=== PATIENT | female | born 1970 | race Caucasian/White ===

== ENCOUNTER 2018-05-06 20:22 | Emergency (ER) | payer MEDICAID ==
[~2018-05-06] VITALS: Ht 165.1 cm; Wt 99.8 kg
[~2018-05-06 20:22] MED LIST: PAROXETINE PO
[2018-05-06 20:29] VITALS: BP 112/72
[2018-05-06 21:30] LABS: Basophils # (auto) 0.1 uL; Basophils % (auto) 0.6 % (0.0-2.0); Eosinophils # (auto) 0.5 uL; Eosinophils % (auto) 4.7 % (0.0-7.0); Hemoglobin 13.2 g/dL (12.2-16.2); Lymphocytes # (auto) 2.3 uL; Lymphocytes % (auto) 23.6 % (10.0-50.0); Mean Corpuscular Hemoglobin 29.3 pg (28.0-32.0); Mean Corpuscular Hgb Conc. 33.1 g/dL (32.0-36.0); Mean Corpuscular Volume 88.4 fL (80.0-100.0); Monocytes # (auto) 0.7 uL; Monocytes % (auto) 7.1 % (0.0-12.0); Neutrophils # (auto) 6.2 uL; Nucleated Red Blood Cells % 0.1 %; Platelet Count (auto) 336 10^3/uL (140-450); Red Blood Cells 4.52 10^6/uL (4.0-5.20); Red Cell Distribution Width 14.2 % (11.8-14.3); White Blood Cell 9.7 10^3/uL (4.4-10.8)
[2018-05-06 21:47] LABS: Alanine Aminotransferase 31 U/L (13-56); Albumin 3.8 g/dL (3.4-5.0); Anion Gap 11 (5-15); Aspartate Aminotransferase 23 U/L (15-37); BUN/Creatinine Ratio 16.9; Blood Urea Nitrogen 15 mg/dL (7-18); Calcium 8.6 mg/dL (8.5-10.1); Carbon Dioxide 24 mmol/L (21-32); Chloride 104 mmol/L (98-107); GFR African American 88 mL/min; GFR Non-African American 73 mL/min; Glucose 108 mg/dL (74-106); Magnesium 1.9 mg/dL (1.6-2.6); Potassium 3.7 mmol/L (3.5-5.1); Sodium 139 mmol/L (136-145)
[2018-05-06 21:53] LABS: Alkaline Phosphatase 54 U/L (45-117); Bilirubin, Total 0.5 mg/dL (0.2-1.0); Total Protein 8.1 g/dL (6.4-8.2)
== END 2018-05-07 07:10 | disposition left against medical advice (07) ==
LOC: ER 20:22
DX: R07.9 Chest pain, unspecified (principal); Z53.21 Procedure and treatment not carried out due to patient leaving prior to being seen by health care provider
CPT/HCPCS: 36415; 71046; 80053; 83735; 84484; 85025; 93005

== ENCOUNTER 2022-12-16 09:22 | Inpatient (IN) | payer MEDICAID ==
[~2022-12-16] VITALS: Ht 165.1 cm; Wt 106.0 kg
[2022-12-16 10:07] LABS: Basophils # (auto) 0.1 10 ^3/uL (0-0.2); Basophils % (auto) 0.4 % (0.0-2.0); Eosinophils # (auto) 0.5 10 ^3/uL (0-0.8); Eosinophils % (auto) 3.6 % (0.0-7.0); Hemoglobin 14.3 g/dL (12.2-16.2); Lymphocytes # (auto) 2.2 10 ^3/uL (0.4-5.4); Lymphocytes % (auto) 16.7 % (10.0-50.0); Mean Corpuscular Hemoglobin 30.1 pg (28.0-32.0); Mean Corpuscular Hgb Conc. 33.9 g/dL (32.0-36.0); Mean Corpuscular Volume 88.7 fL (80.0-100.0); Monocytes # (auto) 1.1 10 ^3/uL (0-1.3); Monocytes % (auto) 8.1 % (0.0-12.0); Neutrophils # (auto) 9.4 10 ^3/uL (1.6-8.6); Neutrophils % (auto) 71.2 % (37.0-80.0); Nucleated Red Blood Cells % 0.1 %; Red Blood Cells 4.74 10^6/uL (4.0-5.20); Red Cell Distribution Width 13.6 % (11.8-14.3); White Blood Cell 13.3 10^3/uL (4.4-10.8)
[2022-12-16 10:26] LABS: Alanine Aminotransferase 37 U/L (7-40); Albumin 4.9 g/dL (3.2-4.8); Alkaline Phosphatase 59 U/L (46-116); Anion Gap 5 (5-15); Aspartate Aminotransferase 23 U/L (13-40); Bilirubin, Total 0.9 mg/dL (0.2-1.0); Blood Urea Nitrogen 10 mg/dL (9-23); Carbon Dioxide 27 mmol/L (20-30); Chloride 101 mmol/L (98-107); Glucose 130 mg/dL (74-106); Lipase 46 U/L (12-53); Potassium 4.2 mmol/L (3.5-5.1); Sodium 133 mmol/L (136-145); Total Protein 8.1 g/dL (5.7-8.2)
[2022-12-16 10:37] VITALS: PULSE 63; RESP 19; O2SAT 95
[2022-12-16 10:41] LABS: Urine Bacteria NONE SEEN /hpf (None Seen); Urine Blood TRACE /uL (Negative); Urine Clarity HAZY (Clear); Urine Color Yellow (Yellow); Urine Mucus FEW (None Seen); Urine Protein, UAD TRACE (Negative); Urine Specific Gravity 1.023 (1.001-1.035); Urine Urobilinogen Normal (Negative); Urine WBC 46 /hpf (0 - 5)
[2022-12-16] MEDS ORDERED: ONDANSETRON HCL 4 MG/2 ML VIAL IV ONE (10:45)
[2022-12-16] MEDS ORDERED: KETOROLAC TROMETH 30 MG/ML 1ML VIAL IV ONE (10:45)
[2022-12-16] MEDS ORDERED: metroNIDAZOLE 500MG/100ML 100 ML IV ONE ×2 (12:45→14:00)
[2022-12-16] MEDS ORDERED: CIPROFLOXACIN 400MG/200ML 200 ML IV ONE (12:45)
[2022-12-16] MEDS ORDERED: cefTRIAXone 1GM/50ML D5W 50 ML IV ONE (14:00)
[2022-12-16] MEDS ORDERED: TAMSULOSIN HYDROCHLORIDE 0.4 MG CAP PO ONE (14:00)
[2022-12-16] MEDS ORDERED: ONDANSETRON HCL 4 MG/2 ML VIAL IV PRN (14:00)
[2022-12-16] MEDS ORDERED: LORazepam 0.5 MG TAB PO PRN (14:00)
[2022-12-16] MEDS ORDERED: SODIUM CHLORIDE 0.9% 1,000 ML IV SCH (14:00)
[2022-12-16] MEDS ORDERED: ACETAMINOPHEN 325 MG TAB PO PRN (14:00)
[2022-12-16] MEDS ORDERED: MORPHINE SULFATE INJ 2 MG/ml SYRG IV PRN (14:00)
[2022-12-16] MEDS ORDERED: NITROGLYCERIN 0.4 MG SL TAB SL PRN (14:00)
[2022-12-16] MEDS ORDERED: CEFTRIAXONE SODIUM 2 GM in D5W 5% 100 ML IV ONE (14:00)
[2022-12-16] MEDS: HYDROmorphone HCL 2 MG/ML VL/or syr IV PRN (14:36)
[2022-12-16 14:38] LABS: Amphetamine Screen, Urine Neg (NEGATIVE); Barbiturate Scree,Urine Neg (NEGATIVE); Benzodiazephine Screen, Urine Neg (NEGATIVE); Cocaine Screen, Urine Neg (NEGATIVE); Opiate Scree,Urine Neg (NEGATIVE)
[2022-12-16 14:39] LABS: Cannabinoid Screen, Urine Neg (NEGATIVE); Phencyclidine Screen, Urine Neg (NEGATIVE)
[2022-12-16] MEDS: SODIUM CHLORIDE 0.9% 1,000 ML IV SCH (15:34)
[2022-12-16 19:45] VITALS: PULSE 56; RESP 12; O2SAT 100
[2022-12-16 20:53] VITALS: BP 107/67; PULSE 62; RESP 18; TEMP 97.7; O2SAT 98
[2022-12-16] MEDS ORDERED: LISI10TA34 PO (20:58)
[2022-12-16] MEDS ORDERED: FERR325T20 PO (20:58)
[2022-12-16] MEDS ORDERED: ASPI-325 PO (20:58)
[2022-12-16] MEDS ORDERED: OXYB5TAB24 PO (20:59)
[2022-12-16 21:32] VITALS: BP_SYST 107; BP_SYST 99; BP_DIAS 45; BP_DIAS 67; PULSE 50; PULSE 62; RESP 16; TEMP 97.7; TEMP 97.9; O2SAT 97; O2SAT 98
[2022-12-17] VITALS (8 sets, daily range): BP systolic 102–132; BP diastolic 54–69; PULSE 69–82; RESP 14–18; TEMP 97.9–98.9; O2SAT 94–96
[2022-12-17] MEDS: SODIUM CHLORIDE 0.9% 1,000 ML IV SCH ×3 (00:58→22:16)
[2022-12-17 06:50] LABS: Basophils # (auto) 0 10 ^3/uL (0-0.2); Basophils % (auto) 0.3 % (0.0-2.0); Eosinophils # (auto) 0.3 10 ^3/uL (0-0.8); Eosinophils % (auto) 3.3 % (0.0-7.0); Hematocrit 35.4 % (36.0-46.0); Hemoglobin 12.2 g/dL (12.2-16.2); Lymphocytes % (auto) 10.7 % (10.0-50.0); Mean Corpuscular Hemoglobin 30.5 pg (28.0-32.0); Mean Corpuscular Hgb Conc. 34.4 g/dL (32.0-36.0); Mean Corpuscular Volume 88.6 fL (80.0-100.0); Monocytes # (auto) 0.7 10 ^3/uL (0-1.3); Monocytes % (auto) 7.9 % (0.0-12.0); Neutrophils # (auto) 6.9 10 ^3/uL (1.6-8.6); Neutrophils % (auto) 77.8 % (37.0-80.0); Red Cell Distribution Width 13.9 % (11.8-14.3); White Blood Cell 8.9 10^3/uL (4.4-10.8)
[2022-12-17 07:03] LABS: Alanine Aminotransferase 30 U/L (7-40); Alkaline Phosphatase 43 U/L (46-116); Anion Gap 6 (5-15); Calcium 8.6 mg/dL (8.5-10.1); Carbon Dioxide 27 mmol/L (20-30); Chloride 106 mmol/L (98-107); Glucose 103 mg/dL (74-106); Potassium 4.2 mmol/L (3.5-5.1); Sodium 139 mmol/L (136-145); Triglycerides 66 mg/dL (< 150)
[2022-12-17 07:04] LABS: BUN/Creatinine Ratio 15.8 (10.0-20.0); Blood Urea Nitrogen 12 mg/dL (9-23); LDL Cholesterol 69 mg/dL (< 100)
[2022-12-17 07:05] LABS: Albumin 3.8 g/dL (3.2-4.8); Aspartate Aminotransferase 23 U/L (13-40); Cholesterol 131 mg/dL (< 200); HDL Cholesterol 51 mg/dL (40-59); Thyroid Stimulating Hormone 1.3 uIU/mL (0.55-4.78)
[2022-12-17 07:06] LABS: Bilirubin, Total 0.9 mg/dL (0.2-1.0); Total Protein 6.3 g/dL (5.7-8.2)
[2022-12-17 07:11] LABS: CRP High Sensitivity 6.97 mg/dL (<1.0)
[2022-12-17 07:31] LABS: Erythrocyte Sedimentation Rate 21 mm/hr (0-20)
[2022-12-17 09:59] LABS: Magnesium 1.8 mg/dL (1.6-2.6)
[2022-12-17] MEDS ORDERED: metroNIDAZOLE 500MG/100ML 100 ML IV ONE (10:00)
[2022-12-17] MEDS ORDERED: cefTRIAXone 1GM/50ML D5W 50 ML IV ONE (10:00)
[2022-12-17] MEDS ORDERED: NITROGLYCERIN 0.4 MG SL TAB SL PRN (10:00)
[2022-12-17] MEDS ORDERED: MORPHINE SULFATE INJ 2 MG/ml SYRG IV PRN (10:00)
[2022-12-17] MEDS: HYDROmorphone HCL 2 MG/ML VL/or syr IV PRN ×2 (13:09→22:16)
[2022-12-17] MEDS: metroNIDAZOLE 500MG/100ML 100 ML IV SCH ×2 (15:01→22:20)
[2022-12-17] MEDS ORDERED: TAMSULOSIN HYDROCHLORIDE 0.4 MG CAP PO SCH (18:00)
[2022-12-18 05:00] VITALS: BP 95/56; PULSE 72; RESP 16; TEMP 98.6; O2SAT 94
[2022-12-18] MEDS: metroNIDAZOLE 500MG/100ML 100 ML IV SCH (05:44)
[2022-12-18 07:02] LABS: Basophils # (auto) 0 10 ^3/uL (0-0.2); Basophils % (auto) 0.6 % (0.0-2.0); Eosinophils # (auto) 0.3 10 ^3/uL (0-0.8); Eosinophils % (auto) 4.8 % (0.0-7.0); Hematocrit 34.1 % (36.0-46.0); Hemoglobin 11.7 g/dL (12.2-16.2); Lymphocytes # (auto) 1.3 10 ^3/uL (0.4-5.4); Lymphocytes % (auto) 22.2 % (10.0-50.0); Mean Corpuscular Hemoglobin 30.3 pg (28.0-32.0); Mean Corpuscular Hgb Conc. 34.3 g/dL (32.0-36.0); Mean Corpuscular Volume 88.3 fL (80.0-100.0); Monocytes # (auto) 0.6 10 ^3/uL (0-1.3); Monocytes % (auto) 9.6 % (0.0-12.0); Neutrophils # (auto) 3.8 10 ^3/uL (1.6-8.6); Neutrophils % (auto) 62.8 % (37.0-80.0); Nucleated Red Blood Cells % 0.1 %; Red Blood Cells 3.86 10^6/uL (4.0-5.20); Red Cell Distribution Width 13.6 % (11.8-14.3)
[2022-12-18 07:08] LABS: Alanine Aminotransferase 29 U/L (7-40); Alkaline Phosphatase 49 U/L (46-116); Anion Gap 7 (5-15); BUN/Creatinine Ratio 8.2 (10.0-20.0); Blood Urea Nitrogen 6 mg/dL (9-23); Calcium 8.4 mg/dL (8.7-10.4); Carbon Dioxide 26 mmol/L (20-30); Chloride 105 mmol/L (98-107); Glucose 99 mg/dL (74-106); Potassium 3.8 mmol/L (3.5-5.1); Sodium 138 mmol/L (136-145)
[2022-12-18 07:10] LABS: Albumin 3.8 g/dL (3.2-4.8); Aspartate Aminotransferase 18 U/L (13-40)
[2022-12-18 07:11] LABS: Bilirubin, Total 0.5 mg/dL (0.2-1.0); Total Protein 6.2 g/dL (5.7-8.2)
[2022-12-18] MEDS ORDERED: CALCIUM ACETATE 667 MG CAP PO ONE (07:30)
[2022-12-18 08:00] VITALS: PULSE 74; PULSE 76; RESP 19; O2SAT 93
[2022-12-18 08:49] VITALS: BP 119/72; PULSE 74; RESP 19; TEMP 98.2; O2SAT 93
[2022-12-18] MEDS ORDERED: cefTRIAXone 1GM/50ML D5W 50 ML IV SCH (09:00)
[2022-12-18] MEDS: SODIUM CHLORIDE 0.9% 1,000 ML IV SCH (09:07)
[2022-12-18] MEDS ORDERED: METR-344 PO (09:10)
[2022-12-18] MEDS ORDERED: CIPR-173 PO (09:10)
[2022-12-18 11:17] VITALS: BP 119/72; PULSE 74; RESP 19; TEMP 98.2; O2SAT 93
[2022-12-18 12:30] VITALS: BP 123/69; PULSE 63; RESP 18; TEMP 98; O2SAT 96
== END 2022-12-18 13:25 | disposition home or self-care (01) | DRG 244 ==
LOC: ER 09:22 → TELE 14:11 → TELE-WESTW 20:43 → OBSVTOIN 12-17 10:13
PROVIDERS: ADMIT Internal Medicine Geriatric Medicine; ATTEND Internal Medicine Geriatric Medicine
DX: K57.32 Diverticulitis of large intestine without perforation or abscess without bleeding (principal); N13.6 Pyonephrosis; E66.9 Obesity, unspecified; M19.90 Unspecified osteoarthritis, unspecified site; I10 Essential (primary) hypertension; K57.30 Diverticulosis of large intestine without perforation or abscess without bleeding; Z79.82 Long term (current) use of aspirin; Z79.899 Other long term (current) drug therapy; Z82.49 Family history of ischemic heart disease and other diseases of the circulatory system; Z90.49 Acquired absence of other specified parts of digestive tract; Z98.51 Tubal ligation status; Z68.38 Body mass index [BMI] 38.0-38.9, adult
CPT/HCPCS: 36415; 74176; 76775; 80053; 80061; 80307; 81001; 82306; 82607; 83036; 83605; 83615; 83690; 83735; 84443; 85025; 85652; 86141; 87040; 87086; 93005; G0378; J0696; J1885; J2405; J3490

== ENCOUNTER 2023-09-26 14:44 | Inpatient (IN) | payer MEDICAID ==
[~2023-09-26] VITALS: Ht 165.1 cm; Wt 109.3 kg
[~2023-09-26 14:44] MED LIST changes: +ASPI-325 PO; +CIPR-173 PO; +FERR325T20 PO; +LISI10TA34 PO; +METR-344 PO; +OXYB5TAB24 PO; -PAROXETINE PO
[2023-09-26 15:10] LABS: Urine Bacteria None Seen /hpf (None Seen)
[2023-09-26 15:28] LABS: Urine Blood Negative /uL (Negative); Urine Clarity Clear (Clear); Urine Color Light-Yellow (Yellow); Urine Mucus FEW (None Seen); Urine Protein, UAD Negative (Negative); Urine Specific Gravity 1.019 (1.001-1.035); Urine Urobilinogen Normal (Negative); Urine WBC 1 /hpf (0 - 5)
[2023-09-26] MEDS: ONDANSETRON HCL 4 MG/2 ML VIAL IV ONE ×2 (15:28→16:42)
[2023-09-26] MEDS: SODIUM CHLORIDE 0.9% 1,000 ML IVB ONE (15:28)
[2023-09-26] MEDS: MORPHINE SULFATE 4 MG/ML SYR/VIAL IV ONE ×2 (15:29→16:43)
[2023-09-26 15:30] VITALS: PULSE 103; RESP 20; O2SAT 98
[2023-09-26 15:45] LABS: Basophils # (auto) 0.1 10 ^3/uL (0-0.2); Basophils % (auto) 0.9 % (0.0-2.0); Eosinophils # (auto) 0.2 10 ^3/uL (0-0.8); Eosinophils % (auto) 1.6 % (0.0-7.0); Hematocrit 42.6 % (36.0-46.0); Hemoglobin 14.4 g/dL (12.2-16.2); Lymphocytes # (auto) 2.1 10 ^3/uL (0.4-5.4); Lymphocytes % (auto) 14.2 % (10.0-50.0); Mean Corpuscular Hgb Conc. 33.8 g/dL (32.0-36.0); Mean Corpuscular Volume 88.8 fL (80.0-100.0); Monocytes # (auto) 1.3 10 ^3/uL (0-1.3); Monocytes % (auto) 8.9 % (0.0-12.0); Neutrophils # (auto) 10.9 10 ^3/uL (1.6-8.6); Neutrophils % (auto) 74.4 % (37.0-80.0); Nucleated Red Blood Cells % 0.1 %; Red Cell Distribution Width 13.9 % (11.8-14.3); White Blood Cell 14.7 10^3/uL (4.4-10.8)
[2023-09-26 15:55] LABS: Chloride 104 mmol/L (98-107); Potassium 3.9 mmol/L (3.5-5.1); Sodium 135 mmol/L (136-145)
[2023-09-26 15:56] LABS: Anion Gap 6 (5-15); Calcium 9.8 mg/dL (8.5-10.1); Carbon Dioxide 25 mmol/L (20-30)
[2023-09-26 16:01] LABS: BUN/Creatinine Ratio 13.6 (10.0-20.0); Blood Urea Nitrogen 11 mg/dL (9-23); Glucose 122 mg/dL (74-106)
[2023-09-26] MEDS: metroNIDAZOLE 500MG/100ML 100 ML IV ONE (16:42)
[2023-09-26] MEDS: HYDROmorphone HCL 2 MG/ML VL/or syr IV ONE (20:01)
[2023-09-26] MEDS ORDERED: ACETAMINOPHEN 325 MG TAB PO PRN (21:00)
[2023-09-26] MEDS ORDERED: HYDROcodone-ACET 5/325MG TAB PO PRN (21:00)
[2023-09-26] MEDS ORDERED: ONDANSETRON HCL 4 MG/2 ML VIAL IV PRN (21:00)
[2023-09-26 21:45] VITALS: PULSE 68; RESP 13; O2SAT 99
[2023-09-26] MEDS: metroNIDAZOLE 500MG/100ML 100 ML IV SCH (22:23)
[2023-09-27 04:12] LABS: Basophils # (auto) 0 10 ^3/uL (0-0.2); Basophils % (auto) 0.4 % (0.0-2.0); Eosinophils # (auto) 0.2 10 ^3/uL (0-0.8); Eosinophils % (auto) 1.3 % (0.0-7.0); Hematocrit 38.7 % (36.0-46.0); Hemoglobin 13.4 g/dL (12.2-16.2); Lymphocytes # (auto) 1.4 10 ^3/uL (0.4-5.4); Lymphocytes % (auto) 10.6 % (10.0-50.0); Mean Corpuscular Hemoglobin 30.9 pg (28.0-32.0); Mean Corpuscular Hgb Conc. 34.8 g/dL (32.0-36.0); Mean Corpuscular Volume 88.9 fL (80.0-100.0); Monocytes # (auto) 1.3 10 ^3/uL (0-1.3); Monocytes % (auto) 10.1 % (0.0-12.0); Neutrophils % (auto) 77.6 % (37.0-80.0); Red Blood Cells 4.35 10^6/uL (4.0-5.20); Red Cell Distribution Width 13.9 % (11.8-14.3); White Blood Cell 12.9 10^3/uL (4.4-10.8)
[2023-09-27 04:23] LABS: Chloride 103 mmol/L (98-107); Potassium 4.3 mmol/L (3.5-5.1); Sodium 136 mmol/L (136-145)
[2023-09-27 04:24] LABS: Anion Gap 5 (5-15); Calcium 9.5 mg/dL (8.7-10.4); Carbon Dioxide 28 mmol/L (20-30)
[2023-09-27 04:29] LABS: BUN/Creatinine Ratio 12.9 (10.0-20.0); Blood Urea Nitrogen 11 mg/dL (9-23); Glucose 121 mg/dL (74-106)
[2023-09-27] MEDS: MORPHINE SULFATE INJ 2 MG/ml SYRG IV PRN (05:24)
[2023-09-27 08:47] LABS: Amphetamine Screen, Urine Neg (NEGATIVE)
[2023-09-27 08:48] LABS: Barbiturate Scree,Urine Neg (NEGATIVE); Benzodiazephine Screen, Urine Neg (NEGATIVE); Cannabinoid Screen, Urine Neg (NEGATIVE); Cocaine Screen, Urine Neg (NEGATIVE); Opiate Scree,Urine Neg (NEGATIVE); Phencyclidine Screen, Urine Neg (NEGATIVE)
[2023-09-27 08:48] LABS: Magnesium 1.8 mg/dL (1.6-2.6)
[2023-09-27] MEDS: cefTRIAXone 1GM/50ML D5W 50 ML IV SCH (08:48)
[2023-09-27 09:32] LABS: Partial Thromboplastin Time 29.2 SEC (24.5-34.5); Prothrombin Time 10.6 sec (9.3-11.8)
[2023-09-27 09:40] LABS: Alanine Aminotransferase 36 U/L (7-40); Albumin 4.3 g/dL (3.2-4.8); Alkaline Phosphatase 52 U/L (46-116); Anion Gap 3 (5-15); Aspartate Aminotransferase 27 U/L (13-40); BUN/Creatinine Ratio 10.5 (10.0-20.0); Blood Urea Nitrogen 8 mg/dL (9-23); Calcium 9.3 mg/dL (8.5-10.1); Carbon Dioxide 27 mmol/L (20-30); Chloride 104 mmol/L (98-107); Glucose 118 mg/dL (74-106); Sodium 134 mmol/L (136-145)
[2023-09-27] MEDS: PANTOPRAZOLE 40 MG TAB PO ONE (14:09)
[2023-09-27] MEDS: CYANOCOBALAMIN 500 MCG TAB PO ONE (14:09)
[2023-09-27] MEDS: ERGOCALCIFEROL 50,000 UNIT(1.25MG) CAP PO SCH (14:09)
[2023-09-27] MEDS: OXYBUTYNIN CHL 5 MG TAB PO SCH (14:16)
[2023-09-27 15:05] VITALS: BP 109/60; PULSE 71; RESP 17; TEMP 98.2; O2SAT 97
[2023-09-27 17:00] VITALS: BP 100/59; PULSE 69; RESP 18; TEMP 98.3; O2SAT 97
[2023-09-27 20:00] VITALS: RESP 16
[2023-09-27 21:00] VITALS: BP 119/73; PULSE 67; RESP 17; TEMP 97.5; O2SAT 94
[2023-09-28] MEDS: PANTOPRAZOLE 40 MG TAB PO SCH (05:23)
[2023-09-28 05:24] VITALS: BP 105/66; PULSE 76; RESP 16; TEMP 98; O2SAT 96
[2023-09-28 06:17] LABS: Basophils # (auto) 0 10 ^3/uL (0-0.2); Basophils % (auto) 0.6 % (0.0-2.0); Eosinophils # (auto) 0.3 10 ^3/uL (0-0.8); Hematocrit 37.7 % (36.0-46.0); Hemoglobin 12.9 g/dL (12.2-16.2); Lymphocytes # (auto) 1.4 10 ^3/uL (0.4-5.4); Lymphocytes % (auto) 17.9 % (10.0-50.0); Mean Corpuscular Hemoglobin 30.2 pg (28.0-32.0); Mean Corpuscular Hgb Conc. 34.2 g/dL (32.0-36.0); Mean Corpuscular Volume 88.5 fL (80.0-100.0); Monocytes # (auto) 0.8 10 ^3/uL (0-1.3); Monocytes % (auto) 9.8 % (0.0-12.0); Neutrophils # (auto) 5.4 10 ^3/uL (1.6-8.6); Neutrophils % (auto) 67.7 % (37.0-80.0); Red Blood Cells 4.26 10^6/uL (4.0-5.20); Red Cell Distribution Width 13.6 % (11.8-14.3)
[2023-09-28 06:22] LABS: Chloride 104 mmol/L (98-107); Potassium 3.7 mmol/L (3.5-5.1); Sodium 137 mmol/L (136-145)
[2023-09-28 06:23] LABS: Anion Gap 11 (5-15); Calcium 9.4 mg/dL (8.7-10.4); Carbon Dioxide 22 mmol/L (20-30)
[2023-09-28 06:28] LABS: BUN/Creatinine Ratio 9.7 (10.0-20.0); Blood Urea Nitrogen 7 mg/dL (9-23); Glucose 100 mg/dL (74-106)
[2023-09-28 08:00] VITALS: BP 121/61; PULSE 69; RESP 16; TEMP 98.1; O2SAT 92
[2023-09-28] MEDS ORDERED: MET500T PO (08:30)
[2023-09-28] MEDS ORDERED: ERGO1CAP23 PO (08:30)
[2023-09-28] MEDS ORDERED: ACET-1882 PO (08:30)
[2023-09-28] MEDS ORDERED: CYAN500T3 PO (08:30)
[2023-09-28] MEDS ORDERED: CIPR250T26 PO (08:30)
[2023-09-28] MEDS ORDERED: KETOROLAC TROMETH 30 MG/ML 1ML VIAL IV PRN (09:15)
[2023-09-28] MEDS ORDERED: ONDANSETRON HCL 4 MG/2 ML VIAL IV PRN (09:15)
[2023-09-28] MEDS ORDERED: METOCLOPRAMIDE HCL 5MG/ml INJ 2ml VIAL IV PRN (09:15)
[2023-09-28] MEDS: CYANOCOBALAMIN 500 MCG TAB PO SCH (10:47)
[2023-09-28 12:00] VITALS: BP 112/64; PULSE 61; RESP 16; TEMP 98.1; O2SAT 95
[2023-09-30 09:13] LABS: Hepatitis B Surface Antigen Negative (Negative)
[2023-09-30 09:35] LABS: Hepatitis C Antibody Negative (Negative)
== END 2023-09-28 15:24 | disposition home or self-care (01) | DRG 244 ==
LOC: ER 14:44 → OVERFLOW 21:46 → WEST WING 09-27 14:44
PROVIDERS: ADMIT Internal Medicine; ATTEND Internal Medicine
DX: K57.32 Diverticulitis of large intestine without perforation or abscess without bleeding (principal); R65.10 Systemic inflammatory response syndrome (SIRS) of non-infectious origin without acute organ dysfunction; R16.0 Hepatomegaly, not elsewhere classified; K76.0 Fatty (change of) liver, not elsewhere classified; I10 Essential (primary) hypertension; E66.01 Morbid (severe) obesity due to excess calories; Z87.442 Personal history of urinary calculi; Z80.0 Family history of malignant neoplasm of digestive organs; Z79.899 Other long term (current) drug therapy; Z68.41 Body mass index [BMI] 40.0-44.9, adult
CPT/HCPCS: 36415; 74176; 80048; 80053; 80061; 80307; 81001; 82306; 82607; 83036; 83605; 83735; 84100; 84443; 85025; 85610; 85730; 86803; 87040; 87340; G0378; J2405; J3490

== ENCOUNTER 2024-02-14 02:29 | Emergency (ER) | payer MEDICAID ==
[~2024-02-14] VITALS: Ht 165.1 cm; Wt 105.3 kg
[~2024-02-14 02:29] MED LIST changes: +ACET-1882 PO; -CIPR-173 PO; +CIPR250T26 PO; +CYAN500T3 PO; +ERGO1CAP23 PO; -FERR325T20 PO; +MET500T PO; -METR-344 PO
--- NOTE | 2024-02-14 02:55 | ED.PDOC ---
History of Present Illness HPI Comments 53 y/o F, with a Hx of diverticulitis, HTN, nephrolithiasis, morbid obesity, BTL, cholecystectomy, and partial hysterectomy and a FMHx of colon CA, presents with c/o left-flank, abdominal, and groin pain, today. Patient endorses on persisting "sharp and dull" 7/10 pain for the past 4x days that worsened, last night, at around 2030. Patient comments on pain severity fluctuating in waves, with it being constant towards her flank area and, occasionally, radiating to her LLQ and left-groin area. Patient reports no recent injuries, sick contact, travel, spoiled food, or substance use/exposure. Denies having any nausea, vomiting, diarrhea, urinary symptoms, fever, chills, or other associated symptoms or modifiers at this time. Chief Complaint: Flank Pain Time Seen by MD: 02:40 Primary Care Provider: Chirag GONZALEZ Reviewed Notes: Nurses Notes, Medications, Allergies Allergies: Coded Allergies: NO KNOWN ALLERGIES (Unverified , 05/19/12) Home Meds Active Scripts Gabapentin (Gabapentin) 300 Mg Cap, 1 CAP PO TID PRN for 7 Days, #50 CAP 5 Refills Prov:KELTON HAWKINS MD 02/14/24 Metronidazole (Flagyl) 500 Mg Tab, 1 TAB PO BID for 7 Days, #14 TAB Prov:KELTON HAWKINS MD 02/14/24 Ciprofloxacin Hcl (Cipro) 500 Mg Tab, 500 MG PO BID for 7 Days, #14 TAB Prov:KELTNO HAWKINS MD 02/14/24 Ciprofloxacin Hydrochloride (Ciprofloxacin HCl) 250 Mg Tab, 250 MG PO BID for 10 Days, #20 TAB Prov:LANCE OLSEN [facility] 09/28/23 Metronidazole (Metronidazole) 500 Mg Tab, 500 MG PO TID for 10 Days, #30 TAB Prov:LANCE OLSEN [facility] 09/28/23 Ergocalciferol (VITAMIN D 19338 UNIT) 50,000 [place], [address] UNIT PO Q7D for 30 Days, #10 CAP Prov:LANCE OLSEN 09/28/23 Cyanocobalamin (Gnp Vitamin B12) 500 Mcg Tab, 500 MCG PO DAILY for 30 Days, #30 TAB Prov:LANCE OLSEN 09/28/23 Acetaminophen (Acetaminophen) 325 Mg Tab, 650 MG PO Q6HP PRN for 30 Days, #240 TAB Prov:PRESLEYDESHAUNLANCE LOPEZ RESIDENT 09/28/23 Reported Medications Oxybutynin Chloride (Ditropan Xl) 5 Mg Tab, 3 TAB PO DAILY 12/16/22 Aspirin (Aspirin Low Dose) 81 Mg Tab, 1 TAB PO DAILY 12/16/22 Lisinopril (Lisinopril) 10 Mg Tab, 1 TAB PO DAILY 12/16/22 Information Source: Patient Mode of Arrival: Ambulatory Severity: Moderate Timing: Days Duration: Since onset Prehospital treatment: None Past Medical History PAST MEDICAL HISTORY: HTN, Kidney Stones Past Medical History (Other): diverticulitis, morbid obesity Surgical History: BTL, Cholecystectomy, Hysterectomy (partial ) Surgical History (Other): bilateral hand Sx [employer]ER History: No Pertinent [employer]ER History Family History Family History: No family hx of DM, No family hx of Heart sebastian, No family hx of HTN, No family hx ofKidney sebastian, No family hx of Liver sebastian, No family hx of Lung sebastian, No family hx of Stroke, Family hx of Cancer (colon CA) Social History Smoker: Non-Smoker Alcohol: Occasionally Drugs: Denies Drug Use Lives In: Home Constitutional: denies: chills, diaphoresis, fatigue, fever, malaise, sweats, weakness, others EENTM: denies: blurred vision, double vision, ear bleeding, ear discharge, ear drainage, ear pain, ear ringing, eye pain, eye redness, hearing loss, mouth pain, mouth swelling, nasal discharge, nose bleeding, nose congestion, nose pain, photophobia, tearing, throat pain, throat swelling, voice changes, others Respiratory: denies: cough, hemoptysis, orthopnea, SOB at rest, shortness of breath, SOB with excertion, stridor, wheezing, others Cardiovascular: denies: chest pain, dizzy spells, diaphoresis, Dyspnea on exertion, edema, irregular heart beat, left arm pain, lightheadedness, palpitations, PND, syncope, others Gastrointestinal: reports: abdominal pain (LLQ); denies: abdomen distended, blood streaked bowels, constipated, diarrhea, dysphagia, difficulty swallowing, hematemesis, melena, nausea, poor appetite, poor fluid intake, rectal bleeding, rectal pain, vomiting, others Genitourinary: reports: flank pain (left-side), pain (left groin ); denies: abnormal vagina bleeding, burning, dyspareunia, dysuria, frequency, hematuria, incontinence, , vagina discharge, urgency, others Neurological: denies: dizziness, fainting, headache, left sided numbness, left sided weakness, numbness, paresthesia, pre-existing deficit, right sided numbness, right sided weakness, seizure, speech problems, tingling, tremors, weakness, others Musculoskeletal: denies: back pain, gout, joint pain, joint swelling, muscle pain, muscle stiffness, neck pain, others Integumetry: denies: bruises, change in color, change in hair/nails, dryness, laceration, lesions, lumps, rash, wounds, others Allergic/Immunocompromised: denies: Difficulty Healing, Frequent Infections, Hives, Itching, others Hematologic/Lymphatic: denies: anemia, blood clots, easy bleeding, easy bruising, swollen glands, others Endocrine: denies: excessive hunger, excessive sweating, excessive thirst, excessive urination, flushing, intolerance to cold, intolerance to heat, unexplained weight gain, unexplained weight loss, others Psychiatric: denies: anxiety, bipolar disorder, depression, hopeless, panic disorder, schizophrenia, sleepless, suicidal, others All Other Systems: Reviewed and Negative Physical Exam General Appearance: Moderate Distress HEENT: Normal ENT Inspection, Pharynx Normal, TMs Normal Neck: Full Range of Motion, Non-Tender, Normal, Normal Inspection Respiratory: Chest Non-Tender, Lungs Clear, No Accessory Muscle Use, No Respiratory Distress, Normal Breath Sounds Cardiovascular: No Edema, No JVD, No Murmur, No Gallop, Normal Peripheral Pulses, Regular Rate/Rhythm Breast Exam: Deferred Gastrointestinal: LLQ, Soft, Tenderness Genitalia: Deferred Pelvic: Deferred Rectal: Deferred Extremities: No calf tenderness, Normal capillary refill, Normal inspection, Normal range of motion, Non-tender, No pedal edema Musculoskeletal : Apperance: Normal Neurologic: Alert, district agent II-XII nml as Tested, No Motor Deficits, Normal Affect, Normal Mood, No Sensory Deficits Cerebellar Function: Normal Reflexes: Normal Skin: Dry, Normal Color, Warm Lymphatic: No Adenopathy Was a procedure done? Was a procedure done?: No Differential Dx Considerations may include: nephrolithiasis, pyelonephritis, cystitis, ovarian cysts, ovarian torsion, musculoskeletal pain X-Ray, Labs, Meds, VS Vital Signs Date Time Temp Pulse Resp B/P (MAP) Pulse Ox O2 Delivery O2 Flow Rate FiO2 02/14/24 02:37 98.2 102 18 124/76 (92) 97 Lab Test 02/14/24 02:55 02/14/24 02:40 Range/Units White Blood Count 12.0 H 4.4-10.8 10^3/uL Red Blood Count 4.82 4.0-5.20 10^6/uL Hemoglobin 14.4 12.2-16.2 g/dL Hematocrit 42.4 36.0-46.0 % Mean Corpuscular Volume 88.1 80.0-100.0 fL Mean Corpuscular Hemoglobin 29.9 28.0-32.0 pg Mean Corpuscular Hemoglobin Concent 34.0 32.0-36.0 g/dL Red Cell Distribution Width 13.9 11.8-14.3 % Platelet Count 323 140-450 10^3/uL Mean Platelet Volume 7.6 6.9-10.8 fL Neutrophils (%) (Auto) 68.9 37.0-80.0 % Lymphocytes (%) (Auto) 18.3 10.0-50.0 % Monocytes (%) (Auto) 8.8 0.0-12.0 % Eosinophils (%) (Auto) 3.4 0.0-7.0 % Basophils (%) (Auto) 0.6 0.0-2.0 % Neutrophils # (Auto) 8.2 1.6-8.6 10 ^3/uL Lymphocytes # (Auto) 2.2 0.4-5.4 10 ^3/uL Monocytes # (Auto) 1.0 0-1.3 10 ^3/uL Eosinophils # (Auto) 0.4 0-0.8 10 ^3/uL Basophils # (Auto) 0.1 0-0.2 10 ^3/uL Nucleated Red Blood Cells 0.1 % Sodium Level 139 136-145 mmol/L Potassium Level 4.0 3.5-5.1 mmol/L Chloride Level 103 98-107 mmol/L Carbon Dioxide Level 28 20-31 mmol/L Anion Gap 8 5-15 Blood Urea Nitrogen 17 9-23 mg/dL Creatinine 0.93 0.550-1.02 mg/dL Glomerular Filtration Rate Calc 74 >90 mL/min BUN/Creatinine Ratio 18.3 10.0-20.0 Serum Glucose 108 H 74-106 mg/dL Calcium Level 10.7 H 8.7-10.4 mg/dL Total Bilirubin 0.6 0.2-1.0 mg/dL Aspartate Amino Transferase (AST) 23 13-40 U/L Alanine Aminotransferase (ALT) 48 H 7-40 U/L Alkaline Phosphatase 69 46-116 U/L Total Protein 7.5 5.7-8.2 g/dL Albumin 4.9 H 3.2-4.8 g/dL Lipase 49 12-53 U/L Urine Color Light-yellow Yellow Urine Clarity Clear Clear Urine pH 5.0 5.0-9.0 Urine Specific [place] 1.023 1.001-1.035 Urine Protein Negative Negative Urine Ketones Negative Negative Urine Blood Negative Negative /uL Urine Nitrite Negative Negative Urine Bilirubin Negative Negative Urine Urobilinogen Normal Negative mg/dL Urine Leukocyte Esterase 1+ Negative /uL Urine RBC 1 0 - 4 /hpf Urine WBC 6 0 - 5 /hpf Urine Squamous Epithelial Cells Few <5 /hpf Urine Bacteria Few H None Seen /hpf Urine Mucus Few None Seen Urine Glucose Normal Normal mg/dL Time of 1ST Reevaluation: 03:10 Reevaluation 1ST: Unchanged Time of 2ND Reevaluation: 04:30 Reevaluation 2ND: Improved Patient Education/Counseling: Diagnosis, Treatment Family Education/Counseling: No Family Present Additional Information I independently reviewed and interpreted the lab and CT findings Departure 1 Departure Time of Disposition: 05:04 Impression: Primary Impression: Acute diverticulitis Disposition: 01 HOME / SELF CARE / HOMELESS Condition: Stable e-Prescriptions Gabapentin (Gabapentin) 300 Mg Cap 1 CAP PO TID PRN for 7 Days, #50 CAP 5 Refills Prov: KELTON HAWKINS MD 02/14/24 Metronidazole (Flagyl) 500 Mg Tab 1 TAB PO BID for 7 Days, #14 TAB Prov: KELTON HAWKINS MD 02/14/24 Ciprofloxacin Hcl (Cipro) 500 Mg Tab 500 MG PO BID for 7 Days, #14 TAB Prov: KELTON HAWKINS MD 02/14/24 Discharged With: Self Critical Care Note Critical Care Time?: No Stability Stability form required: No Heart Score Heart Score: Heart Score Response (Comments) Value History N/A 0 EKG N/A 0 Age N/A 0 Risk Factors N/A 0 Troponin N/A 0 Total 0 I personally scribed for KELTON HAWKINS MD ([email or web address]) on 02/14/24 at 02:55. Electronically submitted by Reinaldo Landon ([email or web address]). KELTON HAWKINS MD Feb 14, 2024 02:55
[2024-02-14 03:17] LABS: Basophils # (auto) 0.1 10 ^3/uL (0-0.2); Basophils % (auto) 0.6 % (0.0-2.0); Eosinophils # (auto) 0.4 10 ^3/uL (0-0.8); Eosinophils % (auto) 3.4 % (0.0-7.0); Hematocrit 42.4 % (36.0-46.0); Hemoglobin 14.4 g/dL (12.2-16.2); Lymphocytes # (auto) 2.2 10 ^3/uL (0.4-5.4); Lymphocytes % (auto) 18.3 % (10.0-50.0); Mean Corpuscular Hemoglobin 29.9 pg (28.0-32.0); Mean Corpuscular Volume 88.1 fL (80.0-100.0); Monocytes % (auto) 8.8 % (0.0-12.0); Neutrophils # (auto) 8.2 10 ^3/uL (1.6-8.6); Neutrophils % (auto) 68.9 % (37.0-80.0); Nucleated Red Blood Cells % 0.1 %; Platelet Count (auto) 323 10^3/uL (140-450); Red Blood Cells 4.82 10^6/uL (4.0-5.20); Red Cell Distribution Width 13.9 % (11.8-14.3)
[2024-02-14 03:38] LABS: Alanine Aminotransferase 48 U/L (7-40); Albumin 4.9 g/dL (3.2-4.8); Alkaline Phosphatase 69 U/L (46-116); Anion Gap 8 (5-15); Aspartate Aminotransferase 23 U/L (13-40); BUN/Creatinine Ratio 18.3 (10.0-20.0); Bilirubin, Total 0.6 mg/dL (0.2-1.0); Blood Urea Nitrogen 17 mg/dL (9-23); Calcium 10.7 mg/dL (8.7-10.4); Carbon Dioxide 28 mmol/L (20-31); Chloride 103 mmol/L (98-107); Glucose 108 mg/dL (74-106); Lipase 49 U/L (12-53); Sodium 139 mmol/L (136-145); Total Protein 7.5 g/dL (5.7-8.2)
[2024-02-14 04:19] LABS: Urine Bacteria FEW /hpf (None Seen); Urine Blood Negative /uL (Negative); Urine Clarity Clear (Clear); Urine Color Light-Yellow (Yellow); Urine Mucus FEW (None Seen); Urine Protein, UAD Negative (Negative); Urine Specific Gravity 1.023 (1.001-1.035); Urine Urobilinogen Normal (Negative); Urine WBC 6 /hpf (0 - 5)
--- NOTE | 2024-02-14 04:27 | DVH ---
Exam: CT CT AB PEL WO CON-NO ORAL OR IV History: left flank pain Comparison Study: CT scan of the abdomen pelvis performed on 09/26/2023. TECHNIQUE: Multidetector CT of the abdomen and pelvis was performed from lung bases to ischial tubero sities. Imaging was performed without IV contrast using axial images. Coronal and sagittal reformats were obtained from the axial data set by the technologist. Radiation Dose Information: CT Dose: CTDI volume is 24.5 mGy. Dose-length product is 1345.4 mGy*cm FINDINGS: Evaluation of solid organs is limited due to lack of intravenous contrast use. Findings: Lung Bases: No acute or significant lung base finding. Normal heart size. No pleural or pericardial effusion. Liver: The liver is normal in size. Diffusely hypoattenuating liver parenchyma consistent with hepati c steatosis. No focal lesions. Gallbladder and Biliary Tree: Cholecystectomy. No biliary ductal dilatation. Spleen: Unremarkable Pancreas: The pancreas is grossly normal in appearance. Adrenal Glands: Unremarkable Kidneys: Kidneys are grossly normal without calculi or hydronephrosis. GI Tract: The stomach is grossly normal in appearance. The small bowel is normal in caliber. There is diverticulosis of the sigmoid colon. Wall thickening and pericolonic fat stranding consistent with acute diverticulitis. Normal appendix. Peritoneal cavity: No pneumoperitoneum. No ascites. Lymphadenopathy: No mesenteric, retroperitoneal or periportal lymphadenopathy. Abdominal Wall and Mesentery: Unremarkable. Vasculature: The visualized abdominal aorta is normal in size and caliber. Evaluation of abdominal a nd pelvic vessels is limited due to lack of intravenous contrast. Pelvic Organs: Unremarkable Urinary Bladder: Grossly unremarkable for degree of distention. Musculoskeletal: No aggressive focal bony lesions, acute fractures or dislocation. Soft tissues: Unremarkable IMPRESSION: 1. Acute uncomplicated sigmoid diverticulitis. 2. Hepatic steatosis. 3. Cholecystectomy. Radiation optimization: All CT scans at this facility use at least one of these dose optimization sheila hniques: automated exposure control mA and/or kV adjustment per patient size (includes targeted exam s where dose is matched to clinical indication) or iterative reconstruction.
[2024-02-14] MEDS ORDERED: CIPR-173 PO (04:38)
[2024-02-14] MEDS ORDERED: METR-344 PO (04:39)
[2024-02-14] MEDS ORDERED: GABA-1250 PO (04:39)
[2024-02-14] MEDS: CIPROFLOXACIN HYDROCHLORIDE 250 MG TAB PO ONE (05:28)
[2024-02-14] MEDS: metroNIDAZOLE 500 MG TAB PO ONE (05:29)
[2024-02-14] MEDS: ONDANSETRON ODT 4 MG TAB PO ONE (05:29)
[2024-02-14] MEDS: HYDROcodone-ACET 10/325MG TAB PO ONE (05:29)
[2024-02-14 05:40] VITALS: BP 117/70; PULSE 91; RESP 16; O2SAT 95
== END 2024-02-14 05:42 | disposition home or self-care (01) ==
LOC: ER 02:29
DX: K57.32 Diverticulitis of large intestine without perforation or abscess without bleeding (principal); I10 Essential (primary) hypertension; E66.01 Morbid (severe) obesity due to excess calories; Z79.82 Long term (current) use of aspirin; Z79.899 Other long term (current) drug therapy; Z87.442 Personal history of urinary calculi; Z90.49 Acquired absence of other specified parts of digestive tract; Z90.710 Acquired absence of both cervix and uterus; Z98.51 Tubal ligation status; Z68.38 Body mass index [BMI] 38.0-38.9, adult
CPT/HCPCS: 36415; 74176; 80053; 81001; 83690; 85025; 99284; Q0162

== ENCOUNTER 2024-09-09 20:01 | Emergency (ER) | payer MEDICAID ==
[~2024-09-09] VITALS: Ht 165.1 cm; Wt 104.3 kg
[~2024-09-09 20:01] MED LIST changes: +CIPR-173 PO; +GABA-1250 PO; +METR-344 PO
[2024-09-09 20:27] LABS: Urine Bacteria None Seen /hpf (None Seen)
[2024-09-09 20:32] LABS: Urine Amorphous Crystal FEW /hpf (None Seen); Urine Blood Negative /uL (Negative); Urine Clarity Clear (Clear); Urine Color Yellow (Yellow); Urine Mucus FEW (None Seen); Urine Protein, UAD Negative (Negative); Urine Squamous Epithelial Cell FEW /hpf (<5); Urine Urobilinogen Normal (Negative); Urine WBC 5 /HPF (0-5); Urine pH 7.5 (5.0-9.0)
[2024-09-09 20:39] LABS: Basophils # (auto) 0.1 10 ^3/uL (0-0.2); Eosinophils # (auto) 0.3 10 ^3/uL (0-0.8); Eosinophils % (auto) 2.2 % (0.0-7.0); Hematocrit 41.3 % (36.0-46.0); Hemoglobin 14.2 g/dL (12.2-16.2); Lymphocytes # (auto) 1.9 10 ^3/uL (0.4-5.4); Lymphocytes % (auto) 15.8 % (10.0-50.0); Mean Corpuscular Hemoglobin 29.7 pg (28.0-32.0); Mean Corpuscular Hgb Conc. 34.3 g/dL (32.0-36.0); Mean Corpuscular Volume 86.4 fL (80.0-100.0); Monocytes # (auto) 1.3 10 ^3/uL (0-1.3); Monocytes % (auto) 10.2 % (0.0-12.0); Neutrophils # (auto) 8.7 10 ^3/uL (1.6-8.6); Neutrophils % (auto) 70.8 % (37.0-80.0); Nucleated Red Blood Cells % 0.1 %; Platelet Count (auto) 245 10^3/uL (140-450); Red Blood Cells 4.78 10^6/uL (4.0-5.20); Red Cell Distribution Width 13.8 % (11.8-14.3); White Blood Cell 12.3 10^3/uL (4.4-10.8)
--- NOTE | 2024-09-09 20:43 | ED.PDOC ---
History of Present Illness HPI Comments 53 y/o obese F, with a notable history of diverticulitis, presents for bilateral lower quadrants abdominal pain, that radiates to her back, with associated intermittent nausea for the past day. Denies any vomiting, diarrhea, constipation, urinary symptoms, fever, chills, or further associated symptoms. Vital signs were stable on arrival. Chief Complaint: Abdominal Pain Time Seen by MD: 20:20 Primary Care Provider: Chirag GONZALEZ Reviewed Notes: Nurses Notes Allergies: Coded Allergies: NO KNOWN ALLERGIES (Unverified , 05/19/12) Home Meds Active Scripts Gabapentin (Gabapentin) 300 Mg Cap, 1 CAP PO TID PRN for 7 Days, #50 CAP 5 Refills Prov:KELTON HAWKINS MD 02/14/24 Metronidazole (Flagyl) 500 Mg Tab, 1 TAB PO BID for 7 Days, #14 TAB Prov:KELTON HAWKINS MD 02/14/24 Ciprofloxacin Hcl (Cipro) 500 Mg Tab, 500 MG PO BID for 7 Days, #14 TAB Prov:KELTON HAWKINS MD 02/14/24 Ciprofloxacin Hydrochloride (Ciprofloxacin HCl) 250 Mg Tab, 250 MG PO BID for 10 Days, #20 TAB Prov:LANCE OLSEN 09/28/23 Metronidazole (Metronidazole) 500 Mg Tab, 500 MG PO TID for 10 Days, #30 TAB Prov:LANCE OLSEN 09/28/23 Ergocalciferol (VITAMIN D 63288 UNIT) 50,[place], [address] UNIT PO Q7D for 30 Days, #10 CAP Prov:LANCE OLSEN 09/28/23 Cyanocobalamin (Gnp Vitamin B12) 500 Mcg Tab, 500 MCG PO DAILY for 30 Days, #30 TAB Prov:LANCE OLSEN 09/28/23 Acetaminophen (Acetaminophen) 325 Mg Tab, 650 MG PO Q6HP PRN for 30 Days, #240 TAB Prov:LANCE OLSEN 09/28/23 Reported Medications Oxybutynin Chloride (Ditropan Xl) 5 Mg Tab, 3 TAB PO DAILY 12/16/22 Aspirin (Aspirin Low Dose) 81 Mg Tab, 1 TAB PO DAILY 12/16/22 Lisinopril (Lisinopril) 10 Mg Tab, 1 TAB PO DAILY 12/16/22 Information Source: Patient Mode of Arrival: Ambulatory Severity: Moderate Timing: Days Duration: Since onset Prehospital treatment: None Past Medical History PAST MEDICAL HISTORY: HTN, Kidney Stones Past Medical History (Other): diverticulitis Surgical History: BTL, Cholecystectomy, Hysterectomy 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 IN WORKER 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 History Family History Family History: No family hx of DM, No family hx of Heart sebastian, No family hx of HTN, No family hx ofKidney sebastian, No family hx of Liver sebastian, No family hx of Lung sebastian, No family hx of Stroke, Family hx of Cancer Social History Smoker: Non-Smoker Alcohol: Occasionally Drugs: Denies Drug Use Lives In: Home Constitutional: denies: chills, diaphoresis, fatigue, fever, malaise, sweats, weakness, others EENTM: denies: blurred vision, double vision, ear bleeding, ear discharge, ear drainage, ear pain, ear ringing, eye pain, eye redness, hearing loss, mouth pain, mouth swelling, nasal discharge, nose bleeding, nose congestion, nose pain, photophobia, tearing, throat pain, throat swelling, voice changes, others Respiratory: denies: cough, hemoptysis, orthopnea, SOB at rest, shortness of breath, SOB with excertion, stridor, wheezing, others Cardiovascular: denies: chest pain, dizzy spells, diaphoresis, Dyspnea on exertion, edema, irregular heart beat, left arm pain, lightheadedness, palpitations, PND, syncope, others Gastrointestinal: reports: abdominal pain (That radiates to the back); denies: abdomen distended, blood streaked bowels, constipated, diarrhea, dysphagia, difficulty swallowing, hematemesis, melena, nausea, poor appetite, poor fluid intake, rectal bleeding, rectal pain, vomiting, others Genitourinary: denies: abnormal vagina bleeding, burning, dyspareunia, dysuria, flank pain, frequency, hematuria, incontinence, pain, , vagina discharge, urgency, others Neurological: denies: dizziness, fainting, headache, left sided numbness, left sided weakness, numbness, paresthesia, pre-existing deficit, right sided numbness, right sided weakness, seizure, speech problems, tingling, tremors, weakness, others Musculoskeletal: denies: back pain, gout, joint pain, joint swelling, muscle pain, muscle stiffness, neck pain, others Integumetry: denies: bruises, change in color, change in hair/nails, dryness, laceration, lesions, lumps, rash, wounds, others Allergic/Immunocompromised: denies: Difficulty Healing, Frequent Infections, Hives, Itching, others Hematologic/Lymphatic: denies: anemia, blood clots, easy bleeding, easy bruising, swollen glands, others Endocrine: denies: excessive hunger, excessive sweating, excessive thirst, excessive urination, flushing, intolerance to cold, intolerance to heat, unexplained weight gain, unexplained weight loss, others Psychiatric: denies: anxiety, bipolar disorder, depression, hopeless, panic disorder, schizophrenia, sleepless, suicidal, others All Other Systems: Reviewed and Negative (Comprehensive review of systems are negative unless otherwise stated in HPI) Physical Exam General Appearance: Moderate Distress (Due to abdominal pain concerns), Obese HEENT: Normal ENT Inspection, Pharynx Normal, TMs Normal Neck: Full Range of Motion, Non-Tender, Normal, Normal Inspection Respiratory: Chest Non-Tender, Lungs Clear, No Accessory Muscle Use, No Respiratory Distress, Normal Breath Sounds Cardiovascular: No Edema, No JVD, No Murmur, No Gallop, Normal Peripheral Pulses, Regular Rate/Rhythm Breast Exam: Deferred Gastrointestinal: Other (Diffuse bilateral lower abdominal tenderness to palpation throughout. Difficult to assess due to body habitus. Abdomen was reasonably soft. Pain seemed to be stronger on the left lower quadrant.) Genitalia: Deferred Pelvic: Deferred Rectal: Deferred Extremities: No calf tenderness, Normal capillary refill, Normal inspection, Normal range of motion, Non-tender Neurologic: Alert, No Motor Deficits, Normal Affect, Normal Mood, No Sensory Deficits Cerebellar Function: Normal Reflexes: Normal Skin: Dry, Normal Color, Warm Lymphatic: No Adenopathy Was a procedure done? Was a procedure done?: No Differential Dx Considerations may include: Diverticulitis, nephrolithiasis, pyelonephritis, cystitis, PID, ovaria cysts, ovarian torsion, among others X-Ray, Labs, Meds, VS Vital Signs Date Time Temp Pulse Resp B/P (MAP) Pulse Ox O2 Delivery O2 Flow Rate FiO2 09/09/24 20:14 98.9 87 16 121/95 (104) 98 98.9 Lab Test 09/09/24 20:33 09/09/24 20:21 Range/Units White Blood Count 12.3 H 4.4-10.8 10^3/uL Red Blood Count 4.78 4.0-5.20 10^6/uL Hemoglobin 14.2 12.2-16.2 g/dL Hematocrit 41.3 36.0-46.0 % Mean Corpuscular Volume 86.4 80.0-100.0 fL Mean Corpuscular Hemoglobin 29.7 28.0-32.0 pg Mean Corpuscular Hemoglobin Concent 34.3 32.0-36.0 g/dL Red Cell Distribution Width 13.8 11.8-14.3 % Platelet Count 245 140-450 10^3/uL Mean Platelet Volume 7.9 6.9-10.8 fL Neutrophils (%) (Auto) 70.8 37.0-80.0 % Lymphocytes (%) (Auto) 15.8 10.0-50.0 % Monocytes (%) (Auto) 10.2 0.0-12.0 % Eosinophils (%) (Auto) 2.2 0.0-7.0 % Basophils (%) (Auto) 1.0 0.0-2.0 % Neutrophils # (Auto) 8.7 H 1.6-8.6 10 ^3/uL Lymphocytes # (Auto) 1.9 0.4-5.4 10 ^3/uL Monocytes # (Auto) 1.3 0-1.3 10 ^3/uL Eosinophils # (Auto) 0.3 0-0.8 10 ^3/uL Basophils # (Auto) 0.1 0-0.2 10 ^3/uL Nucleated Red Blood Cells 0.1 % Sodium Level 138 136-145 mmol/L Potassium Level 4.4 3.5-5.1 mmol/L Chloride Level 103 98-107 mmol/L Carbon Dioxide Level 26 20-31 mmol/L Anion Gap 9 5-15 Blood Urea Nitrogen 14 9-23 mg/dL Creatinine 0.84 0.550-1.02 mg/dL Glomerular Filtration Rate Calc 84 >90 mL/min BUN/Creatinine Ratio 16.7 10.0-20.0 Serum Glucose 102 74-106 mg/dL Calcium Level 9.5 8.7-10.4 mg/dL Lipase 44 12-53 U/L Urine Color Yellow Yellow Urine Clarity Clear Clear Urine pH 7.5 5.0-9.0 Urine Specific [place] 1.020 1.001-1.035 Urine Protein Negative Negative Urine Ketones Negative Negative Urine Blood Negative Negative /uL Urine Nitrite Negative Negative Urine Bilirubin Negative Negative Urine Urobilinogen Normal Negative mg/dL Urine Leukocyte Esterase Trace Negative /uL Urine RBC 2 0 - 4 /hpf Urine Microscopic WBC 5 0-5 /HPF Urine Squamous Epithelial Cells Few <5 /hpf Urine Amorphous Crystals Few None Seen /hpf Urine Bacteria None seen None Seen /hpf Urine Mucus Few None Seen Urine Glucose Normal Normal mg/dL X-Ray, Labs, Meds, VS Comment All studies performed the ED were evaluated by me personally. Serum laboratories were unremarkable for any systemic process, but imaging studies co nfirmed a diverticulitis. Discussed the condition with the patient and advised that I could manage her inpatient for a day or two until she is stable or, send her home on oral antibiotics and pain medication. Patient would like to go home. Advised return to ED if she has any difficulties managing her condition. Time of 1ST Reevaluation: 22:42 Reevaluation 1ST: Improved Consultation: PCP Patient Education/Counseling: Diagnosis, Treatment Family Education/Counseling: Diagnosis, Treatment, No Family Present SEPSIS Sepsis Screen Date sepsis recognized/suspect: Sep 09, 2024 Time Sepsis recognized/suspect: 2010 Recent Procedure: No On Antibiotic Therapy: No Respiratory Rate >20: No Heart Rate >90: No Temp<36 C (96.8 F) or >38.3 C: No SBP <90 or MAP <65 mmHG: No New Acute Mental Status Change: No Is the patient on CPAP, BIPAP,: No Physician Orders Ct Ab Pel Wo Con-No Oral Or Iv (09/09/24 20:24) Vital Signs Date Time Temp Pulse Resp B/P (MAP) Pulse Ox O2 Delivery O2 Flow Rate FiO2 09/09/24 20:14 98.9 87 16 121/95 (104) 98 98.9 Laboratory Tests Test 09/09/24 20:33 White Blood Count 12.3 10^3/uL (4.4-10.8) H Departure 1 Departure Time of Disposition: 22:42 Impression: Primary Impression: Diverticulitis of intestine Disposition: HOME / SELF CARE / HOMELESS Condition: Stable Additional Instructions: Advised patient utilize antibiotics as directed until completion as well as pain medication as needed. Patient should follow up with primary care provider for re-evaluation once medication is complete. e-Prescriptions Hydrocodone-Acetaminophen (Hydrocodone Bitartrate/AC 5-325 mg) 1 Tab Tab 1 TAB PO Q6HP PRN, #12 TAB Prov: KEDAR MANCILLA PAC 09/09/24 Amoxicillin & Pot Clavulanate (AUGMENTIN TABLET) 875 Mg Tb 875 MG PO BID for 7 Days, #14 TAB Prov: KEDAR MANCILLA PAC 09/09/24 Discharged With: Self, Friend Critical Care Note Critical Care Time?: No Stability Stability form required: No Heart Score Heart Score: Heart Score Response (Comments) Value History N/A 0 EKG N/A 0 Age N/A 0 Risk Factors N/A 0 Troponin N/A 0 Total 0 I personally scribed for KEDAR MANCILLA PAC ([email or web address]) on 09/09/24 at 20:43. Electronically submitted by Reinaldo Landon ([email or web address]). KEDAR MANCILLA PAC Sep 09, 2024 20:43
[2024-09-09 20:53] LABS: Chloride 103 mmol/L (98-107); Potassium 4.4 mmol/L (3.5-5.1); Sodium 138 mmol/L (136-145)
[2024-09-09 20:54] LABS: Anion Gap 9 (5-15); Carbon Dioxide 26 mmol/L (20-31)
[2024-09-09 20:55] LABS: Calcium 9.5 mg/dL (8.7-10.4)
[2024-09-09 21:00] LABS: BUN/Creatinine Ratio 16.7 (10.0-20.0); Blood Urea Nitrogen 14 mg/dL (9-23); Glucose 102 mg/dL (74-106); Lipase 44 U/L (12-53)
--- NOTE | 2024-09-09 21:28 | DVH ---
COMPUTERIZED TOMOGRAPHY ABDOMEN AND PELVIS WITHOUT CONTRAST REASON FOR EXAM: Bilateral lower abdominal pain COMPARISON: CT CT AB PEL WO CON-NO ORAL OR IV on DOS: 02/14/24, CT CT AB PEL WO CON-NO ORAL OR IV on DOS: 09/26/23, CT CT AB PEL WO CON-NO ORAL OR IV on DOS: 12/16/22 TECHNIQUE: Spiral scans were acquired from the diaphragm to the symphysis pubis without intravenous c ontrast administration. 2-D coronal and sagittal reformatted images were provided. Radiation optimiza tion: All CT scans at this facility use at least one of these dose optimization techniques: Automated exposure control mA and/or kV adjustment per patient size (includes targeted exams where dose is mat ched to clinical indication) or iterative reconstruction. RADIATION DOSE: CTDI: 22 mGy DLP: 1484 mGy-cm FINDINGS: The lung bases are grossly clear. There is no pleural effusion. There is no pericardial effusion. The spleen is not enlarged. The liver is within normal limits for size and contour. The liver is dif fusely hypodense, suggestive of steatosis. The gallbladder is surgically absent. Evaluation of the a bdominal organs is suboptimal in the absence of intravenous contrast. Unenhanced appearance of the p ancreas is grossly unremarkable. The adrenal glands are normal. The kidneys are similar in size. Ther e is no hydronephrosis of either kidney. No renal, ureteral, or bladder calculus is identified. The urinary bladder is decompressed and is not well evaluated. There is no abdominal aortic aneurysm. Th ere is no pathologic distention of the small bowel to suggest obstruction. There is no lymphadenopath y in the abdomen or pelvis by size criteria. The uterus is absent. The ovaries are not seen. There is extensive sigmoid diverticulosis. There is moderate soft tissue stranding about the distal sigmoid colon in the deep pelvis consistent with acute diverticulitis. No intrapelvic abscess is identified. The colonic stool burden is small. The appendix is normal. No acute osseous abnormality is identifie d. There is severe facet arthropathy at the lumbosacral junction. IMPRESSION: Acute diverticulitis at the distal sigmoid colon. No intrapelvic abscess is identified within the bucio itations of this noncontrast study. Status post hysterectomy and cholecystectomy Diffusely hypodense hepatic parenchyma. This may be secondary to steatosis or another diffuse hepati c process. Correlate clinically and with liver function tests.
[2024-09-09] MEDS ORDERED: HYDR-4902 PO (22:44)
[2024-09-09] MEDS ORDERED: AUG875T PO (22:44)
[2024-09-09] MEDS ORDERED: metroNIDAZOLE 500 MG TAB PO ONE (23:00)
[2024-09-09] MEDS ORDERED: CIPROFLOXACIN HCL 500 MG TAB PO ONE (23:00)
[2024-09-10 00:57] VITALS: BP 131/69; PULSE 86; RESP 19; TEMP 98.8; O2SAT 97
[2024-09-10] MEDS: ONDANSETRON ODT 4 MG TAB PO ONE (00:59)
[2024-09-10] MEDS: KETOROLAC TROMETH 60MG/2ML VIAL IM ONE (00:59)
[2024-09-10] MEDS: AMOXICILLIN/CLAVUL 875 MG TAB PO ONE (00:59)
== END 2024-09-10 01:16 | disposition home or self-care (01) ==
LOC: ER 20:01
DX: K57.32 Diverticulitis of large intestine without perforation or abscess without bleeding (principal); I10 Essential (primary) hypertension; Z79.82 Long term (current) use of aspirin; Z79.899 Other long term (current) drug therapy; Z90.49 Acquired absence of other specified parts of digestive tract; Z90.710 Acquired absence of both cervix and uterus
CPT/HCPCS: 36415; 74176; 80048; 81001; 83690; 85025; 96372; 99285; J1885; Q0162